=== PATIENT | male | born 1970 | race Caucasian/White ===

== ENCOUNTER 2024-08-21 06:57 | Day surgery (SDC) | payer OTHER, SELFPAY ==
[2024-08-21] VITALS (8 sets, daily range): BP systolic 83–108; BP diastolic 54–83; PULSE 74–97; RESP 16–18; TEMP 36.1–36.5; O2SAT 92–99; BMI 28.5
--- NOTE | 2024-08-21 07:53 | PCM.HP.BLA ---
History and Physical Date of Admission: 08/21/24 Intake Vital Signs 07/06/2414:24 Weight: 165 lb BP 131/87 H Blood Pressure Location Rt brachial Position Sitting Respiration 17 Pulse 70 Pulse Source Monitor Pulse Oximetry (%) 96 Oxygen Delivery Method room air Intake Visit Reasons: Hemorrhoids Chief Complaint: hemorrhoids Is patient in pain?: No Allergies No Known Allergies Allergy (Verified 07/06/24 14:26) Medications ?Medication ?Instructions ?Recorded ?Confirmed ?Type allergy injections subcut 07/06/24 07/06/24 History PFSH Medical History (Updated 07/06/24 @ 14:[address] Tad Preston MD) Acid reflux Family History (Updated 07/06/24 @ 14:24 by Shagufta Agosto) Father Cancer lymphomaGrandmother DiabetesGrandfather Heart disease Social History (Updated 07/06/24 @ 14:24 by Shagufta Agosto) Smoking Status: Never smoker alcohol intake: never HPI HPI HPI: Patient is a 54-year-old male here for both colonoscopy as he has never had 1. He reports that about 3 to 4 years ago he had a problem with hemorrhoids and it went away. He reports that about 2 weeks ago it flared up while he was lifting something heavy at work and it has been sticking out since and is painful. He reports the pain is almost gone but there is still some tissue sticking out. He reports that he is never had a colonoscopy and he denies any abdominal pain or blood in the stool. He has no family history of colon cancer. ROS General General: No weight change, appetite, fatigue, colon cancer, breast cancer or weakness HEENT HEENT: No difficulty swallowing, eye injury, eye surgery, swollen glands or hoarseness Endo Endocrine: No thyroid disease, diabetes mellitus, thyroid cancer, Hair loss, heat intolerance or cold intolerance Skin Skin: No rash or changing moles Musc Musculoskeletal: No back problems, arthritis, rheumatoid arthritis, gout or joint pain Cardio Cardiovascular: No murmur, pacemaker, heart disease, atrial fibrillation, high blood pressure, heart attack, heart stent, palpitations, shortness of breat with exertion or chest pain Psych Psychiatric: No depression, anxiety or hearing voices Resp Respiratory: No shortness of breath, No sleep apnea, No cough, No COPD, No asthma, No emphysema and No wheezing Gastro Gastrointestinal: No abdominal pain, No nausea or vomiting, No diarrhea, No constipation, No blood in stool, Yes acid reflux, Yes hemorrhoids, No ulcers, No gallbladder problem and No black,tarry stools Ryder Hematologic: No blood thinners, No blood disorders, No bleeding, No anemia and No blood clots Neuro Neurologic: No system reviewed and no additional complaints, except as documented, No as per HPI, No abnormal gait, No abnormal hearing, No abnormal movements, No abnormal speech, No behavioral changes, No burning sensations, No confusion, No convulsions, No disequilibrium, No dizziness, No localized weakness, No frequent falls, No headache(s), No lack of coordination, No loss of vision, No memory loss, No numbness, No other visual disturbances, No radicular pain, No restless legs, No sensory deficit, No syncope, No tingling, No tremor(s), No weakness and No other Exam Const General: cooperative Orientation: alert and oriented x3 HENMT Head: normal to inspection Neck Neck: normal visual inspection and full ROM Chest Chest palpation & inspection: normal inspection of the chest Resp Effort & Inspection: normal respiratory effort Auscultation: clear to auscultation bilaterally Cardio Rate: regular rate Rhythm: regular rhythm GI Inspection: non-distended Palpation: soft and nontender Skin General: no rashes or lesions noted Neuro General: patient alert and patient oriented x3 Extrem General: full ROM Psych Appearance: grossly normal Mental Status: mental status grossly normal Assessment and Plan Assessment and Plan (1) Hemorrhoids: Qualifiers: Hemorrhoid type: unspecified Qualified Code(s): K64.9 - Unspecified hemorrhoids Plan: The patient is here to discuss his hemorrhoid. I did a physical exam and he does have a hemorrhoid on the left side in the lateral position that has a small area of thrombosis. I explained thrombosed hemorrhoids to the patient in detail. I explained that if this happens again he should come in immediately for evacuation. I discussed performing a colonoscopy as he has never had a screening colonoscopy and we can evaluate the hemorrhoids from internal view. (2) Screen for colon cancer: Status: Acute Plan: I explained endoscopy in detail to the patient. I explained the risks including but not limited to stroke or heart attack with anesthesia, perforation of the GI tract, bleeding, infection. I explained that any of these could necessitate further emergency surgery. The patient understands and all questions were answered sufficiently. The patient wishes to proceed with procedure. Tad Preston MD Pager: [facility] [address] [place] [address], [address] [place] [address] Office: I have examined the patient and the H&P has been reviewed. There are no clinical changes since date of exam.
--- NOTE | 2024-08-21 08:00 | PCM.PRE.AN2 ---
ASA Classification* ASA Classification ASA Classification: 2 Assessment & Plan Anesthesia* Anesthesia Assessment Anesthesia Assessment: Discussed sedation and/or anesthesia options, risks, benefits, and alternatives with patient/parents/legal guardian/POA. Questions invited. The patient/parents/legal guardian/POA seems to understand and agrees to proceed with anesthesia plan. Reviewed the physical assessment, medical history, allergy history and patient home medications list prior to surgery/procedure/anesthetic and documented any changes. Performed airway and anesthesia risk assessments. Anesthesia Type Anesthesia Type: MAC History Source History Obtained from:: Patient and Chart Anesthesia Focused Assessment* Temperature: 96.9 F Pulse Rate: 93 Blood Pressure: 108/83 Respiratory Rate: 18 Pulse Ox: 99 Airway Assessment Mouth opens: >3 cm Mallampati Score: II Teeth Condition: Intact Neck Range of motion (ROM): Full ROM Focused Labs Anesthesia Preop lab: CBC CHEMISTRY COAG Pre-Assessment Diagnosis/Proposed Procedure Planned Operative Procedure(s): COLONOSCOPY Anesthesia History Anesthesia History - waistline joiner overlock: Anesthesia History - waistline joiner overlock Hx Hospitalization No 08/17/24 08:49 Any Problems With Anesthesia No 08/17/24 08:49 Cholinesterase deficiency No 08/17/24 08:49 You/Your Family Experience No 08/17/24 08:49 fever (hyperthermia) with Relationship Recent Exposure to Contagious No 08/21/24 07:15 Disease Does patient have nerve No 08/17/24 08:49 stimulator Patient instructed to have device shut off --Does patient have Pacemaker No 08/21/24 07:15 or ICD? When Was Last Pacemaker Check QUESTION #4 FULL TEXT: You/Your Family Experience fever (hyperthermia) with Anesthesia Last Oral Intake Last Oral intake: Last Oral Intake NPO since 22:30 08/21/24 07:15 Meds taken in AM with sips of No 08/21/24 07:15 water? Meds patient instructed to take am of surgery PONV PONV - waistline joiner overlock: PONV - waistline joiner overlock Female No 08/17/24 08:49 HX of Motion Sickness No 08/17/24 08:49 HX of N/V After Surgery No 08/17/24 08:49 Non-Smoker No 08/17/24 08:49 Duration of Surgery greater No 08/17/24 08:49 than 60 minutes Number of Risk Factors PONV Score Height & Weight Height & Weight: Anesthesia: Height & Weight Height 5 ft 3 in 08/21/24 07:15 Weight: 73 kg 08/21/24 07:15 Body Mass Index (BMI) 28.5 08/21/24 07:15 Respiratory Assessment Respiratory Assessment - waistline joiner overlock: Respiratory Tract Infection Hx - waistline joiner overlock Hx Respiratory Tract Infection No 08/17/24 08:49 STOP Sleep Apnea STOP Sleep Apnea - waistline joiner overlock: STOP Sleep Apnea - waistline joiner overlock Hx Hypertension No 08/17/24 08:49 Hx Sleep Apnea No 08/17/24 08:49 CPAP BIPAP Do you snore loudly (louder No 08/17/24 08:49 than talking or can be heard Do you often feel tired/ No 08/17/24 08:49 fatigued/ sleepy during daytime? Has anyone observed you stop No 08/17/24 08:49 breathing during sleep? STOP Results Negative 08/17/24 08:49 QUESTION #5 FULL TEXT : Do you snore loudly (louder than talking or can be heard through closed doors)? Tobacco Use History Tobacco Use History - waistline joiner overlock: Tobacco Use History - waistline joiner overlock Tobacco Use Smoking Status Never smoker 08/17/24 08:49 Hx Tobacco Use No 08/17/24 08:49 Years Smoking Packs Smoked per Day Smoking Cessation Date was within the last 15 years Hx Smoking Cessation Date Hx Smoking Cessation Counseling Hematologic Medial History Hematologic Hx - waistline joiner overlock: Hematologic Medical Hx - superintendent commissary Hx of Blood Transfusion No 08/17/24 08:49 Hx of Transfusion in last 3 No 08/17/24 08:49 Months Date of Last Transfusion (if within last 3 months) Ever experience any problems No 08/17/24 08:49 with transfusion(s)? Specify any problems Hx of Preganancy in last 3 N/A 08/17/24 08:49 Months Nurse Filling Out Transfusion VLEHMAN 08/17/24 08:49 & Questions: Date: 08/17/24 08/17/24 08:49 Time: 08:54 08/17/24 08:49 Patient unable to answer at this time (ie. confused, unrespo /Reproduction History /Reproductive History - waistline joiner overlock: /Reproductive Hx- waistline joiner overlock Hx Now Gestational Age (in weeks): EDC: Hx Hx Para Hx Section SAB PFSH Medical History Non-smoker Wears glasses Acid reflux Home Medications ?Medication ?Instructions ?Recorded ?Last Taken ?Type allergy injections 1 ea subcut Q30D 07/06/24 Unknown History Allergy/AdvReac Type Severity Reaction Status Date / Time No Known Allergies Allergy Verified 08/21/24 07:13 Family History Father Cancer lymphoma Grandmother Diabetes Grandfather Heart disease Surgical History No history of previous surgery Social History Smoking Status: Never smoker alcohol intake: never Review of Systems (Anesthesia) ROS Narrative System reviewed and no additional complaints, except as documented.
--- NOTE | 2024-08-21 08:25 | OP.COLON_ITS ---
Patient Name: Nasir Dobbins Procedure Date: 08/21/2024 7:57 AM Date of : 1970 Age: 54 Procedure: Colonoscopy Indications: Screening for colorectal malignant neoplasm Providers: Tad Preston MD Referring MD: No Primary Care Physician Medicines: Propofol per Anesthesia Patient Profile: This is a 54 year old male. Refer to note in patient chart for documentation of history and physical. Last Colonoscopy: none. The patient's first colonoscopy is today. Complications: No immediate complications. Estimated blood loss: Minimal. Procedure: Pre-Anesthesia Assessment: - Prior to the procedure, a History and Physical was performed, and patient medications and allergies were reviewed. The patient's tolerance of previous anesthesia was also reviewed. The risks and benefits of the procedure and the sedation options and risks were discussed with the patient. All questions were answered, and informed consent was obtained. Prior Anticoagulants: The patient has taken no anticoagulant or antiplatelet agents. After reviewing the risks and benefits, the patient was deemed in satisfactory condition to undergo the procedure. After I obtained informed consent, the scope was passed under direct vision. Throughout the procedure, the patient's blood pressure, pulse, and oxygen saturations were monitored continuously. The Colonoscope was introduced through the anus and advanced to the cecum, identified by appendiceal orifice and ileocecal valve. The colonoscopy was performed without difficulty. The patient tolerated the procedure well. The quality of the bowel preparation was good. The ileocecal valve, appendiceal orifice, and rectum were photographed. Scope In: 8:10:09 AM Scope Withdrawal Time 0 hours 6 minutes 34 seconds Scope Out: 8:21:14 AM Total Procedure Duration Time 0 hours 11 minutes 5 seconds Findings: The entire examined colon appeared normal on direct and retroflexion views. Non-bleeding external and internal hemorrhoids were found during retroflexion. The hemorrhoids were moderate. Impression: - The entire examined colon is normal on direct and retroflexion views. - Non-bleeding external and internal hemorrhoids. - No specimens collected. Recommendation: - Discharge patient to home. - Resume previous diet. - Continue present medications. - Repeat colonoscopy in 10 years for screening purposes. Procedure Code(s): --- Professional --- 88858, Colonoscopy, flexible; diagnostic, including collection of specimen(s) by brushing or washing, when performed (separate procedure) Diagnosis Code(s): --- Professional --- Z12.11, Encounter for screening for malignant neoplasm of colon K64.8, Other hemorrhoids CPT copyright 2021 [employer]. All rights reserved. The codes documented in this report are preliminary and upon manager law review may be revised to meet current compliance requirements. Tad Preston MD 08/21/2024 8:24:28 AM This report has been signed electronically. Number of Addenda: 0 Note Initiated On: 08/21/2024 7:57 AM
--- NOTE | 2024-08-21 08:25 | OP.CCLET_ITS ---
08/21/2024 No Primary Care Physician Re : Colonoscopy procedure for Nasir Dobbins [facility] This procedure was performed on Wednesday, August 21, 2024. My impressions and recommendations are as follows: Impressions : - The entire examined colon is normal on direct and retroflexion views. - Non-bleeding external and internal hemorrhoids. - No specimens collected. Recommendations : - Discharge patient to home. - Resume previous diet. - Continue present medications. - Repeat colonoscopy in 10 years for screening purposes. My findings are described in the full procedure note, which is enclosed. If I can be of further assistance, please feel free to contact me at Doctor phone number(s): , Work: . Sincerely, Tad Preston MD 08/21/2024 8:24:28 AM This report has been signed electronically.
--- NOTE | 2024-08-21 08:29 | PCM.POST.ANE ---
Anesthesia: Postop Eval I Current Vital Signs Temperature: 97.1 F Pulse Rate: 74 Blood Pressure: 92/66 Respiratory Rate: 16 Pulse Ox: 97 Oxygen Delivery Method: Room Air Assessment Airway patent: Yes Spontaneous unlabored respirations: Yes Mental status: Asleep nausea: No Vomiting: No Anesthesia Complication: No Fluid Hydration Crystalloid volume administer (ml): 40 Total IV fluid infused: 40 Progress Note Anesthesia document: Postop Eval 1 completed: Yes
--- NOTE | 2024-08-21 09:30 | PCM.POSTANE2 ---
Anesthesia Postop Eval I Sum Postop Eval Completion status Anesthesia document: Postop Eval 1 completed: Yes Anesthesia Postop Eval I Summary Anesthesia Postop Eval I Summary: Anesthesia Postop Eval I: Assessment Summary Airway patent Yes 08/21/24 08:30 [email or web address] Spontaneous unlabored Yes 08/21/24 08:30 [email or web address] respirations Mental status Asleep 08/21/24 08:30 [email or web address] nausea No 08/21/24 08:30 [email or web address] Vomiting No 08/21/24 08:30 [email or web address] Anesthesia Postop Eval I: Fluid Summary Crystalloid volume administer 40 08/21/24 08:30 [email or web address] (ml) Colloids volume administered ( ml) Blood Product volume administered (ml) Total IV fluid infused 40 08/21/24 08:30 [email or web address] Anesthesia Postop Eval I: Summary Notes Anesthesia Complication No 08/21/24 08:30 [email or web address] Anesthesia Complication Comment: Post-operative progress note Anesthesia: Postop Eval II Evaluation Mental status: Awake Pain Level: 1 nausea: No Vomiting: No
== END 2024-08-21 09:03 | disposition home or self-care (01) ==
LOC: EN 06:58 → AC 07:00
PROVIDERS: Visit Provider Surgery
PROC: 0DJD8ZZ Inspection of Lower Intestinal Tract, Via Natural or Artificial Opening Endoscopic (ICD-10-PCS; CPT 45378; principal; 2024-08-21 07:55)
DX: Z12.11 Encounter for screening for malignant neoplasm of colon (principal); K64.4 Residual hemorrhoidal skin tags; K64.8 Other hemorrhoids
CPT/HCPCS: 45378; A4216; J2405